=== PATIENT | female | born 1975 | race Caucasian/White ===

== ENCOUNTER 2016-05-27 18:02 | Emergency (ER) | payer BC ==
[2016-05-27 18:16] VITALS: RESP 16; TEMP 97.7
[2016-05-27] MEDS ORDERED: NORMAL SALINE 10 ML SYRINGE FLUSH IVP PRN (18:24)
[2016-05-27] MEDS ORDERED: Sodium Chloride 0.9% 1,000 ML PRIMARY IV ONE (18:24)
[2016-05-27 18:42] LABS: BASOPHILS # (AUTO) 0.04 10*3/UL; BASOPHILS % (AUTO) 0.3 % (0-1); EOSINOPHILS % (AUTO) 1.3 % (0-8); HEMATOCRIT 43.3 % (37.0-47.0); HEMOGLOBIN 14.9 g/dL (12.0-16.0); IMM GRAN % (AUTO) 0.3 % (0-5); IMM GRAN# (AUTO) 0.04 10*3/UL; LYMPHOCYTES # (AUTO) 4.15 10*3/uL; LYMPHOCYTES % (AUTO) 34.8 % (10-50); MEAN CORPUSCULAR HEMOGLOBIN 33.1 PG (27-31); MEAN CORPUSCULAR HGB CONC 34.4 g/dL (33-37); MEAN PLATELET VOLUME 10.2 FL (7.4-12.2); MONOCYTES # (AUTO) 0.84 10*3/UL (0.3-0.8); NEUTROPHILS # (AUTO) 6.71 10*3/UL; NEUTROPHILS % (AUTO) 56.3 % (50-80); RDW COEFFICIENT OF VARIATION 13.3 % (11.5-14.5); WHITE BLOOD COUNT 11.93 10^3/uL (4.8-10.8)
[2016-05-27 18:51] LABS: PLATELET MORPHOLOGY COMMENT NORMAL MORPHOLOGY (NORM)
[2016-05-27 18:55] LABS: ASPARTATE AMINO TRANSFERASE 34 IU/L (8-39); BILIRUBIN,TOTAL 0.8 mg/dL (0.3-1.2); BLOOD UREA NITROGEN 9 mg/dL (7-22); BUN/CREATININE RATIO 12.85 (6-20); CALCIUM 9.1 mg/dL (8.7-10.7); CHLORIDE 105 meq/L (98-112); CREATININE 0.7 mg/dL (0.50-1.20); EST GLOMERULAR FILTRATION > 60 (>60 ml/min/1.73m(2)); GLUCOSE 192 mg/dL (78-110); POTASSIUM 4.5 meq/L (3.8-5.2); SODIUM 140 meq/L (135-145); TOTAL PROTEIN 8.1 g/dL (6.1-8.0)
--- NOTE | 2016-05-28 07:57 | PDOC ---
General Adult HPI - General Chief Complaint: Diabetic Complaint Stated Complaint: HYPERGLYCEMIA Date Seen by Provider: 05/27/16 Time Seen by Provider: 18:05 Source: POSITIVE: Patient Exam Limitations: POSITIVE: No limitations Nurse's Notes Reviewed & Considered: Yes - History of Present Illness Initial Comment: The patient is a 41-year-old female with several vague complaints. Among these are sensation of discomfort in her hands and feet. She also states that she has some vague abdominal discomfort. She is concerned because her blood sugars at home have reportedly been running in the 300s, which is unusual for her. She has a history of type II diabetes mellitus. She's had a few loose bowel movements. No fevers or chills. No motor deficits. No cardiopulmonary symptoms. No GI or symptoms except as above. No rashes or skin changes. Have you received a tetanus shot in the past 10 years?: Yes Body Location Affected: REPORTS: Other (As above) Timing: REPORTS: Constant Duration: <1 week Severity: Moderate Quality: REPORTS: Other Context: REPORTS: None Modifying Factors: improves with: Nothing Similar Symptoms Previously: No Recent Care Received: REPORTS: Denies Any Prior Injuries Related to Current Complaint?: No - Patient Home Medications Home Medications: Home Medications Albuterol Sulfate [Proair Hfa] 2 puff INH Q4-6H #1 inh 05/15/16 Fluticasone/Vilanterol [Breo Ellipta 100-25 Mcg Inh] 1 puff INH DAILY #1 puff Alprazolam [Xanax] 1 tab PO TID PRN #20 tab 05/22/16 Saxagliptin HCl/Metformin HCl [Kombiglyze Xr 2.5-1,000 Mg Tab] Sample #192 Vilazodone Hydrochloride [Viibryd] Sample #2 05/22/16 - Patient Allergies Allergies/Adverse Reactions: Allergies Allergy/AdvReac Type Severity Reaction Status Date / Time ketorolac tromethamine Allergy Intermediate HIVES Verified 05/27/16 18:10 [From Toradol] Past Medical History - heen HEENT History: Cataracts Cardiovascular History: Hypertension, Previous [place], Other (please comment) Additional Cardiovasular History: PALPITATIONS WITH ANXIETY; STATES LA 5-6 YEARS AGO Respiratory History: Asthma, Shortness of Breath Additional Respiratory History: bronchitis Gastrointestinal History: GERD, Diverticulitis, Peptic Ulcer Disease, GI Bleed Additional Gastrointestinal History: ULCER 25 YRS AGO Genitourinary History: Denies History Endocrine History: Type 2 Diabetes (oral) Musculoskeletal History: Arthritis, Back Pain, Back Injury Prosthesis or Implant: Yes (PINS AND JORGE L IN LOWER BACK./ R KNEE) Additional Musculoskeletal History: prior spinal surgery with hardwear placed at L5-S1 Neurological History: Denies History Blood Disorders: Denies History Psychiatric History: Depression, Anxiety Disorders, PTSD History of Sexually Transmitted Diseases: No Female Reproductive History: Denies History Obstetrical History: Delivery Cancer History: Denies History In Past Year Been Physically Harmed or Verbally Threatened: No History of MDRO: No History of Other Communicable Diseases: No Tobacco Use: Current Every Day Smoker Alcohol Use: None Substance Use Type: None Previous Surgical History: Yes Type / Date of Surgery: BACK FUSION PINS AND RODS, DISECTOMY/ C SECTION X 4/ RIGHT UNILATERAL OOPHORECTOMY/ IGHT OOPHORECTOMY/EXPLORATORY LAPAROSCOPY/ CATARACT EXT X 2, RIGHT KNEE SCOPE AND PARTIAL REPLACEMENT/COLONOSCOPY/EGD/D&C / LEFT TUBE TIED Anesthesia Reactions: Yes (X1 DIFF AROUSING) Malignant Hyperthermia: No Significant Family History: Asthma, Heart disease, COPD, Diabetes Past Medical History Reviewed: Reviewed - No Changes ROS - Limitations ROS Limitations: No Limitations Constitution: REPORTS: Denies Symptoms Cardiovascular: REPORTS: Denies Cardiac Symptoms Respiratory: REPORTS: Denies Resp Symptoms Neurological: REPORTS: Denies Neuro Symptoms Gastrointestinal: REPORTS: Other (Discomfort) Endocrine: REPORTS: Denies Symptoms Musculoskeletal: REPORTS: Other (Hands and feet feel strange) Genitourinary: REPORTS: Denies Symptoms Eyes: REPORTS: Denies Symptoms ENT: REPORTS: Denies Symptoms Skin: REPORTS: Denies Skin Symptoms Lympathic: REPORTS: Denies Lympathic Symptoms Immunologic: POSITIVE: Denies Symptoms Psychiatric: POSITIVE: Denies Psych Symptoms General Adult Exam - General Appearance General Appearance: POSITIVE: Alert, Cooperative, No Acute Distress, No Evidence of Trauma - HEENT HEENT: POSITIVE: Head Inspection Nml, Eyes Inspection Nml, Ears Inspection Nml, Nose Inspection Nml, Oral/Dental Inspect. Nml, Pharynx Inspect. Nml, PERRL, EOMI - Pupils Pupil Size: 4 mm: Bilateral (PERRLA) - Neck Neck: POSITIVE: Normal Inspection, Thyroid Normal - Respiratory Respiratory: POSITIVE: No Respiratory Distress, Breath Sounds Normal, Chest Non- Tender - Cardiovascular Cardiovascular: POSITIVE: Regular Rate & Rhythm, No Murmur, No Gallop, PMI Normal Peripheral Pulses: Radial (R): 2+, Radial (L): 2+ - Abdomen Abdomen: Soft: (All Quadrants), Normal Bowel Sounds: (All Quadrants), Denies Tenderness: (All Quadrants), No Splenomegaly: (All Quadrants), No Hepatomegaly: (All Quadrants), No Guarding: (All Quadrants), No Rebound: (All Quadrants), No Palpable Pulse: (All Quadrants), No Palpabale Mass: (All Quadrants), No Distention: (All Quadrants), No Rigidity: (All Quadrants) - Back Back: POSITIVE: Normal Inspection - Skin Skin: POSITIVE: Normal Color, Warm, Dry, No Rash - Extremities Extremity: Non-Tender: (All Extremities), Normal ROM: (All Extremities), Normal Inspection: (All Extremities) - Neurological / Psychological Neurological: POSITIVE: Oriented X3, insurance legal assistant Normal As Tested, Motor Normal, Sensation Normal, 5, 6 General Adult Progress - Results Reviewed by me Lab Results Reviewed: Yes Lab Results:: Laboratory Results 05/27/16 Range/Units 18:33 WBC 11.93 H (4.8-10.8) 10^3/uL RBC 4.50 (4.20-5.40) 10^6/uL Hgb 14.9 (12.0-16.0) g/dL Hct 43.3 (37.0-47.0) % MCV 96.2 (81-99) FL MCH 33.1 H (27-31) PG MCHC 34.4 (33-37) g/dL RDW Std Deviation 46.0 (39-50) fL RDW Coeff of Brady 13.3 (11.5-14.5) % Plt Count 307 (140-350) 10*3/uL MPV 10.2 (7.4-12.2) FL Immature Gran % (Auto) 0.3 (0-5) % Neut % (Auto) 56.3 (50-80) % Lymph % (Auto) 34.8 (10-50) % [place] % (Auto) 7.0 (5-15) % Eos % (Auto) 1.3 (0-8) % Baso % (Auto) 0.3 (0-1) % Immature Gran # (Auto) 0.04 10*3/UL Neut # (Auto) 6.71 10*3/UL Lymph # (Auto) 4.15 10*3/uL [place] # (Auto) 0.84 H (0.3-0.8) 10*3/UL Eos # (Auto) 0.15 10*3/UL Baso # (Auto) 0.04 10*3/UL WBC Morphology Comment Normal morphology (NORM) Plt Morphology Comment Normal morphology (NORM) RBC Morph Comment Normal morphology (NORM) Sodium 140 (135-145) meq/L Potassium 4.5 (3.8-5.2) meq/L Chloride 105 (98-112) meq/L Carbon Dioxide 23 (23-33) meq/L Anion Gap 12 (5-20) BUN 9 (7-22) mg/dL Creatinine 0.7 (0.50-1.20) mg/dL Estimated GFR > 60 (>60 ml/min/1.73m(2)) BUN/Creatinine Ratio 12.85 (6-20) Glucose 192 H (78-110) mg/dL Calculated Osmolality 293.0 H (267-292) mOsm/kg Calcium 9.1 (8.7-10.7) mg/dL Magnesium 2.0 (1.6-2.4) mg/dL Total Bilirubin 0.8 (0.3-1.2) mg/dL AST 34 (8-39) IU/L ALT 34 (9-52) IU/L Alkaline Phosphatase 67 (38-126) IU/L Total Protein 8.1 H (6.1-8.0) g/dL Albumin 4.4 (3.5-4.8) g/dL Globulin 3.7 (2.50-4.10) g/dL Albumin/Globulin Ratio 1.10 L (1.3-2.0) mg/g - Patient's Progress Pain Medication Addressed: POSITIVE: Not Applicable School/Work Release Addressed: POSITIVE: Not Applicable Re-Examine Time: 19:50 Re-Examine Comment: Patient states he feels some improved after hydration with normal saline and Zofran IV Status: POSITIVE: Improved, Re-Examined Antibiotics Given: No - Consult Counseled: POSITIVE: Patient, RE: Lab Results, RE: DX, RE: Need for F/U Patient Care Time - Estimated PCT Patient Care Time (In Minutes): 40 Vital Signs - VS Reviewed Vital Signs Reviewed: Yes Discharge Clinical Impression: Hyperglycemia Discharge Disposition: Discharged to Home Condition: Good Patient Instructions Given at Discharge: Hypoglycemia in a Person with Diabetes (ED) Additional Instructions: Believe her symptoms are most likely due to fluctuations in your blood sugar. Increase fluids. Take your blood sugar twice daily for a few days and keep a record. Follow-up with your primary care provider in 7-10 days; he or she she might want to adjust her diabetic medications. Return any time if condition worsens. Follow Up With: MAMI MUKHERJEE [Primary Care Provider] - (Instructions as above. Follow-up with your primary care provider. Return as necessary.)
== END 2016-05-27 20:14 | disposition home or self-care (01) ==
LOC: ER 18:02
DX: E11.65 Type 2 diabetes mellitus with hyperglycemia (principal)
CPT/HCPCS: 80053; 82948; 83735; 85025; 96360; 99283; J7030

== ENCOUNTER → 2016-07-14 | Outpatient (CLI) | payer BC ==
--- NOTE | 2016-07-14 22:15 | DI ---
LEFT SHOULDER, 07/14/2016 5:37 PM: Clinical History: Anterior left shoulder pain. Previous Exam: None at this facility. 3 views are submitted. There is no acute soft tissue, osseous, or joint abnormality. No abnormality o f the visualized portions of the left lung is noted. Reading: Normal left shoulder exam.
== END ==
LOC: MOB RAD 17:38
DX: M25.512 Pain in left shoulder (principal); F17.200 Nicotine dependence, unspecified, uncomplicated; Z98.1 Arthrodesis status; X50.0XXA Overexertion from strenuous movement or load, initial encounter
CPT/HCPCS: 73030

== ENCOUNTER 2016-07-20 15:30 | Emergency (ER) | payer BC ==
[2016-07-20] MEDS ORDERED: oxyCODONE/APAP 10/325 Tab 1 EACH TAB PO ONE (16:20)
[2016-07-20 17:02] VITALS: RESP 16; TEMP 97.7
--- NOTE | 2016-07-20 17:11 | PDOC ---
Back Pain / Injury HPI - General Chief Complaint: Lower Extremity Problem/Injury Stated Complaint: LOWER EXTREMITY PAIN S/P SPINAL Date Seen by Provider: 07/20/16 Time Seen by Provider: 15:50 Source: Patient, RN/MD Exam Limitations: POSITIVE: No limitations Nurse's Notes Reviewed & Considered: Yes - History of Present Illness Initial Comments: The patient is a 41 year old female. She has a long-standing history of chronic back pain and lumbar radiculopathy. She states she has had 2 surgical procedures on her low back for this problem. It sounds like a her initial procedures was a discectomy and her second procedure was probably of spinal fusion. She continues to have back pain and she is presently under the care of Dr. Joseph, who ordered a myelogram done yesterday. Myelogram was attempted in radiology yesterday. The radiologist made to 2 or 3 attempts at 2 different locations and was not able to access the patient. Radiologist states that he did have a bloody return on the second or third pass and he discontinued his attempts at that time. Patient states that during this procedure she did have radicular pain radiating down her right leg and the radiologist terminated his attempt at that level at that time. Patient states she has a history of radicular pain, mainly involving the right leg. She states she is allergic to Toradol and hydrocodone but has used Percocet in the past with good effect. She states that since her myelogram attempt she has had increase in her chronic low back pain, mainly on the right lower paralumbar area with radiation of discomfort down the posterior aspect of her right leg to above her knee. Body Location Affected: REPORTS: Upper Extremity (R), Back Timing: REPORTS: Constant Duration: <24 hours (Approximately 24 hours) Severity: Moderate Quality: REPORTS: "Pain" Context: DENIES: None (Symptoms worse after failed myelogram attempt as above) Modifying Factors: improves with: Movement, Walking Associated Symptoms: REPORTS: Back pain, Other (Radicular pain right leg as above) Similar Symptoms Previously: Yes Recent Care Received: REPORTS: Denies, Recently Seen, Treated by MD (As above) Any Prior Injuries Related to Current Complaint?: No - Patient Home Medications Home Medications: Home Medications Albuterol Sulfate [Proair Hfa] 2 puff INH Q4-6H #1 inh 05/15/16 Fluticasone/Vilanterol [Breo Ellipta 100-25 Mcg Inh] 1 puff INH DAILY #1 puff Hydrocodone/Acetaminophen [Hydrocodon-Acetaminophen 5-325] 1 tab PO Q6-8H PRN # 20 tab 07/14/16 Oxycodone HCl/Acetaminophen [Percocet 10-325 Mg Tablet] 1 each PO Q6H PRN #25 tablet 07/20/16 - Patient Allergies Allergies/Adverse Reactions: Allergies Allergy/AdvReac Type Severity Reaction Status Date / Time ketorolac tromethamine Allergy Intermediate HIVES Verified 07/20/16 16:23 [From Toradol] Past Medical History - heen HEENT History: Cataracts Cardiovascular History: Hypertension, Previous [place], Other (please comment) Additional Cardiovasular History: PALPITATIONS WITH ANXIETY; STATES IN 5-6 YEARS AGO Respiratory History: Asthma, Shortness of Breath Additional Respiratory History: bronchitis Gastrointestinal History: GERD, Diverticulitis, Peptic Ulcer Disease, GI Bleed Additional Gastrointestinal History: ULCER 25 YRS AGO Genitourinary History: Denies History Endocrine History: Type 2 Diabetes (oral) Musculoskeletal History: Arthritis, Back Pain, Back Injury Prosthesis or Implant: Yes (PINS AND JORGE L IN LOWER BACK./ R KNEE) Additional Musculoskeletal History: prior spinal surgery with hardwear placed at L5-S1 Neurological History: Denies History Blood Disorders: Denies History Psychiatric History: Depression, Anxiety Disorders, PTSD History of Sexually Transmitted Diseases: No Female Reproductive History: Fibroids Obstetrical History: Delivery Additional Obstetrical History: X4 Cancer History: Denies History In Past Year Been Physically Harmed or Verbally Threatened: No History of MDRO: No History of Other Communicable Diseases: No Tobacco Use: Current Every Day Smoker Alcohol Use: None Substance Use Type: None Previous Surgical History: Yes Type / Date of Surgery: BACK FUSION PINS AND RODS, DISECTOMY/ C SECTION X 4/ RIGHT UNILATERAL OOPHORECTOMY/ IGHT OOPHORECTOMY/EXPLORATORY LAPAROSCOPY/ CATARACT EXT X 2, RIGHT KNEE SCOPE AND PARTIAL REPLACEMENT/COLONOSCOPY/EGD/D&C / LEFT TUBE TIED Anesthesia Reactions: Yes (X1 DIFF AROUSING) Malignant Hyperthermia: No Significant Family History: Asthma, Heart disease, COPD, Diabetes Past Medical History Reviewed: Reviewed - No Changes ROS - Limitations ROS Limitations: No Limitations Constitution: REPORTS: Denies Symptoms Cardiovascular: REPORTS: Denies Cardiac Symptoms Respiratory: REPORTS: Denies Resp Symptoms Neurological: REPORTS: Other (Radicular pain, left leg) Gastrointestinal: REPORTS: Denies GI Symptoms Endocrine: REPORTS: Denies Symptoms Musculoskeletal: REPORTS: Back Pain (Right lower back pain as above) Genitourinary: REPORTS: Denies Symptoms Eyes: REPORTS: Denies Symptoms ENT: REPORTS: Denies Symptoms Skin: REPORTS: Denies Skin Symptoms Lympathic: REPORTS: Denies Lympathic Symptoms Immunologic: POSITIVE: Denies Symptoms Psychiatric: POSITIVE: Denies Psych Symptoms Back Physical Assessment - General Appearance General Appearance: REPORTS: Alert, Cooperative, No Evidence of Trauma, Moderate Distress (Due to back and right upper leg pain) - HEENT HEENT: POSITIVE: Head Inspection Nml, Eyes Inspection Nml, Ears Inspection Nml, Nose Inspection Nml, Oral/Dental Inspect. Nml, Pharynx Inspect. Nml, PERRL, EOMI - Neck Neck: POSITIVE: Non Tender, Painless ROM, Trachea Midline, Nexus Criteria Negative - Respiratory / CVS Respiratory / CVS: POSITIVE: Chest Non Tender, No Ecchymosis, Breath Sounds Normal, No Respiratory Distress, Heart Sounds Normal, Regular Rate/Rhythm - Abdomen Abdomen: Soft: (All Quadrants), Normal Bowel Sounds: (All Quadrants), Denies Tenderness: (All Quadrants), No Splenomegaly: (All Quadrants), No Hepatomegaly: (All Quadrants), No Guarding: (All Quadrants), No Rebound: (All Quadrants), No Palpable Pulse: (All Quadrants), No Palpabale Mass: (All Quadrants), No Distention: (All Quadrants), No Rigidity: (All Quadrants) - Back Back: REPORTS: No CVA Tenderness, No Vertebral Tenderness, Limited ROM ( Somewhat limited by pain), See Diagram (Pain on palpation right lower paralumbar area). DENIES: CVA Tenderness (R), CVA Tenderness (L), Muscle Spasm - Skin Skin: REPORTS: Intact, Normal For Race, Warm, Dry, No Rash, Other (Site of recent myelogram attempt clear and with no signs of infection) - Extremities Extremity Assessment: Non-Tender: (ALL), Normal ROM: (ALL), No Edema: (ALL), Normal Inspection: (ALL), No Swelling: (ALL), Pelvis Stable: (ALL), Normal Tendon Exam: (ALL) Musculoskeletal: REPORTS: Back Pain Peripheral Pulses: Radial (R): 2+, Radial (L): 2+, Dorsalis-pedis (R): 2+, Dorsalis-pedis (L): 2+ - Neurological / Psychological Neuro / Psych: POSITIVE: Oriented X3, stain wiper Normal As Tested, Motor Normal, Sensation Normal, Mood Appropriate, Affect Appropriate, Reflexes Normal, Other ( Range of motion hips are intact. Patient does complain of some exacerbation of radicular pain down right leg with straight leg raising. Equivocally positive LeSeaque's test. Motor function both lower extremities normal. Sensation to touch grossly intact, both lower extremities) Reflexes: Patellar (L): 2+, Radial (R): 2+ Images - Complete Complete: 1 - Some pain on palpation Back Progress - Patient's Progress Pain Medication Addressed: POSITIVE: Yes (Percocet 10/325 one every 6 hours as necessary) School/Work Release Addressed: POSITIVE: Yes (Rest for 48 hours) Re-Examine Time: 16:20 Status: POSITIVE: Unchanged - Consult Counseled: POSITIVE: Patient, RE: DX, RE: Need for F/U Patient Care Time - Estimated PCT Patient Care Time (In Minutes): 30 Vital Signs - Recent Vital Signs Vital Signs: Vital Signs (Last 8 hours) Temp Pulse Resp BP Pulse Ox 07/20/16 15:30 97.7 F 106 H 16 143/102 95 - VS Reviewed Vital Signs Reviewed: Yes Discharge Clinical Impression: Radiculopathy of leg, Chronic low back pain Discharge Disposition: Discharged to Home Condition: Fair Prescriptions / Orders: Oxycodone HCl/Acetaminophen [Percocet 10-325 Mg Tablet] 1 each PO Q6H PRN #25 tablet PRN Reason: Pain Patient Instructions Given at Discharge: Lumbar Radiculopathy (ED), Chronic Back Pain (ED) Additional Instructions: Follow-up with Dr. Joseph in a day or 2. Percocet, one every 6 hours as necessary for pain. Warm moist compresses to lower back. Rest for a day or 2. Follow-up with your primary care provider. Return here as necessary. Follow Up With: MAMI MUKHERJEE [Primary Care Provider] - (Instructions as above. Return as necessary.)
== END 2016-07-20 16:41 | disposition home or self-care (01) ==
LOC: ER 15:38
DX: M54.16 Radiculopathy, lumbar region (principal); E11.9 Type 2 diabetes mellitus without complications
CPT/HCPCS: 99282

== ENCOUNTER → 2016-07-25 | Outpatient (CLI) | payer BC ==
[2016-07-25 12:42] LABS: BASOPHILS % (AUTO) 0.9 % (0-1); EOSINOPHILS # (AUTO) 0.17 10*3/UL; EOSINOPHILS % (AUTO) 1.5 % (0-8); HEMOGLOBIN 15.8 g/dL (12.0-16.0); LYMPHOCYTES # (AUTO) 2.74 10*3/uL; MEAN CORPUSCULAR HGB CONC 34.3 g/dL (33-37); MEAN PLATELET VOLUME 10.1 FL (7.4-12.2); MONOCYTES # (AUTO) 0.86 10*3/UL (0.3-0.8); MONOCYTES % (AUTO) 7.6 % (5-15); NEUTROPHILS # (AUTO) 7.46 10*3/UL; NEUTROPHILS % (AUTO) 65.6 % (50-80); RED BLOOD COUNT 4.79 10^6/uL (4.20-5.40)
[2016-07-25 12:46] LABS: PLATELET MORPHOLOGY COMMENT NORMAL MORPHOLOGY (NORM); RBC MORPHOLOGY COMMENT NORMAL MORPHOLOGY (NORM); WBC MORPHOLOGY COMMENT NORMAL MORPHOLOGY (NORM)
[2016-07-25 12:55] LABS: BLOOD UREA NITROGEN 9 mg/dL (7-22); BUN/CREATININE RATIO 12.85 (6-20); CALCIUM 9.4 mg/dL (8.7-10.7); EST GLOMERULAR FILTRATION > 60 (>60 ml/min/1.73m(2)); SERUM ALBUMIN 4.1 g/dL (3.5-4.8)
== END ==
LOC: MOB LAB 12:15
PROVIDERS: ATTEND Physician Assistant Medical
DX: R42 Dizziness and giddiness (principal); I10 Essential (primary) hypertension; F17.200 Nicotine dependence, unspecified, uncomplicated
CPT/HCPCS: 36415; 80053; 85025

== ENCOUNTER → 2016-07-26 | Outpatient (CLI) | payer BC ==
[~2016-07-26] MED LIST: DIAZEPAM 5 MG TABLET ONE
--- NOTE | 2016-07-26 17:20 | DI ---
MRI LUMBAR SPINE W/O CN,07/26/2016 4:03 PM: Clinical History: Lower extremity pain with possible postprocedural hematoma. Previous Exam: None at this facility. Findings: Multiplanar MR images are obtained through the lumbar spine without contrast, and demonstrate no evid ence of epidural hematoma. There is a small amount of fat within the filum terminale with a normal-appearing conus at the L1 lev el. Patient is status post bilateral laminectomies at the L5 level with transpedicular fixation of L5/S1. The paravertebral soft tissues demonstrate postsurgical change. Intra-abdominal structures are unrema rkable. Vertebral body height is preserved. Marrow signal is also preserved. Individual intervertebral disc spaces: L1/2: No significant stenosis. L2/3: No significant stenosis. L3/4: No significant stenosis. L4/5: There is mild disc desiccation and annular fissuring with facet and ligamentum flavum hypertrop hy contributing to mild bilateral neural foraminal narrowing. L5/S1: There is some disc desiccation and postsurgical changes at this level. Blooming metallic artif act makes evaluation somewhat limited, but there appears to be some moderate lateral recess stenosis on the right. There is also mild left lateral recess stenosis. Impression: 1. No evidence of epidural hematoma. 2. Degenerative changes and postsurgical changes as above.
--- NOTE | 2016-07-26 17:23 | DI ---
CT LUMBAR SPINE W/O CONTRAST,07/26/2016 4:03 PM: Clinical History: Hematoma after procedure. Previous Exam: None at this facility. Findings: Multiple helically acquired CT images are obtained through the lumbar spine without contrast, and dem onstrate anatomic alignment without fractures. Postsurgical changes are seen consistent with laminect omies at the L5 level. There is transpedicular fusion of L5/S1. There is also interbody fusion at L5/ S1 with some new bone formation, but incomplete fusion at this time. There is some moderate right lateral recess stenosis at L5/S1 with mild lateral recess stenosis on th e left at L5/S1. There are few broad-based disc bulges throughout the lumbar spine without significant stenosis. No acute fractures are identified. Impression: Postsurgical changes and degenerative changes at L5/S1 as above.
== END ==
LOC: MRI 15:56
PROVIDERS: ATTEND Physician Assistant
DX: G97.61 Postprocedural hematoma of a nervous system organ or structure following a nervous system procedure (principal); M48.07 Spinal stenosis, lumbosacral region
CPT/HCPCS: 72131; 72148

== ENCOUNTER → 2016-08-01 | Outpatient (CLI) | payer BC ==
--- NOTE | 2016-08-01 12:40 | DI ---
XR L-SPINE 2-3 VW,08/01/2016 9:42 AM: Clinical History: Low back pain Previous Exam: None at this facility. Findings: Lateral flexion and extension views are obtained of the lumbar spine, and demonstrate stable postsurg ical changes consistent with transpedicular fixation of L5/S1. There is an intervertebral disc space at L5/S1 as well. Vertebral body height is preserved. Intervertebral disc height is preserved. Flexion and extension vi ews demonstrate no evidence of instability. Impression: Postsurgical changes as above without evidence of instability.
== END ==
LOC: LAB 09:33
PROVIDERS: ATTEND Neurological Surgery
DX: M54.5 Low back pain (principal); Z98.890 Other specified postprocedural states
CPT/HCPCS: 72100

== ENCOUNTER → 2016-08-30 | Outpatient (CLI) | payer OTHER ==
[2016-08-30 11:23] LABS: BASOPHILS # (AUTO) 0.05 10*3/UL; BASOPHILS % (AUTO) 0.4 % (0-1); EOSINOPHILS # (AUTO) 0.18 10*3/UL; EOSINOPHILS % (AUTO) 1.5 % (0-8); HEMATOCRIT 46.4 % (37.0-47.0); HEMOGLOBIN 15.8 g/dL (12.0-16.0); LYMPHOCYTES # (AUTO) 4.38 10*3/uL; MEAN CORPUSCULAR HEMOGLOBIN 32.6 PG (27-31); MEAN CORPUSCULAR HGB CONC 34.1 g/dL (33-37); MEAN CORPUSCULAR VOLUME 95.7 FL (81-99); MONOCYTES # (AUTO) 0.71 10*3/UL (0.3-0.8); MONOCYTES % (AUTO) 5.8 % (5-15); NEUTROPHILS % (AUTO) 56.3 % (50-80); PLATELET MORPHOLOGY COMMENT NORMAL MORPHOLOGY (NORM); RBC MORPHOLOGY COMMENT NORMAL MORPHOLOGY (NORM); RED BLOOD COUNT 4.85 10^6/uL (4.20-5.40); WBC MORPHOLOGY COMMENT NORMAL MORPHOLOGY (NORM)
[2016-08-30 11:36] LABS: BLOOD UREA NITROGEN 12 mg/dL (7-22); BUN/CREATININE RATIO 17.14 (6-20); CALCIUM 9.1 mg/dL (8.7-10.7); EST GLOMERULAR FILTRATION > 60 (>60 ml/min/1.73m(2)); SERUM ALBUMIN 4.4 g/dL (3.5-4.8)
[2016-08-30 11:39] LABS: BILIRUBIN,URINE NEGATIVE (NEG); CLARITY,URINE CLEAR (CLEAR); COLOR,URINE YELLOW; GLUCOSE, URINE (UA) 500 mg/dL (NEG); NITRATE,URINE NEGATIVE (NEG); OCCULT BLOOD,URINE NEGATIVE (NEG); PROTEIN,URINE NEGATIVE (NEG); UROBILINOGEN,URINE 0.2 EU/dL (0.2)
[2016-08-30 11:44] LABS: URINE SAMPLE TYPE CLEAN CATCH URINE
--- NOTE | 2016-08-30 14:11 | DI ---
PA /LATERAL CHEST X-RAY, 08/30/2016 11:02 AM : Clinical History: Preoperative evaluation. Previous Exam: March 23, 2016 There is no acute soft tissue or bony abnormality. Heart size is normal. Lungs are clear. Mediastinal structures are normal. There are no pulmonary nodules. IMPRESSION: Normal chest x-ray.
[2016-08-30 16:06] LABS: HEMOGLOBIN A1C 8.32 % (4.2-6.0)
--- NOTE | 2016-08-31 05:55 | EKG ---
[address] [address] Measurements Intervals [place] Rate: 87 P: 64 DE: 144 QRS: 72 QRSD: 91 T: 26 QT: 354 QTc: 398 Interpretive Statements SINUS RHYTHM INTERPRETATION BASED ON A DEFAULT AGE OF 40 YEARS Compared to ECG 03/23/2016 21:07:37 No significant changes Electronically Signed On 08-31-16 15:46:12 MDT by Gatito Blanco MD [email or web address]
== END ==
LOC: RAD 10:50
PROVIDERS: ATTEND Family Medicine
DX: Z01.812 Encounter for preprocedural laboratory examination (principal); Z01.810 Encounter for preprocedural cardiovascular examination; M54.5 Low back pain; E11.9 Type 2 diabetes mellitus without complications; J44.9 Chronic obstructive pulmonary disease, unspecified; I10 Essential (primary) hypertension; F17.200 Nicotine dependence, unspecified, uncomplicated
CPT/HCPCS: 36415; 71020; 80053; 81003; 83036; 85025; 85610; 85730; 93005; 93010

== ENCOUNTER 2016-10-08 22:20 | Emergency (ER) | payer BC ==
--- NOTE | 2016-10-08 23:34 | PDOC ---
Skin Rash/Insect/Abscess HPI - General Chief Complaint: Integumentary Stated Complaint: ABDOMINAL INCISION WITH REDNESS AND DRAINAGE Date Seen by Provider: 10/08/16 Time Seen by Provider: 23:33 Source: POSITIVE: Patient Exam Limitations: POSITIVE: No limitations Nurse's Notes Reviewed & Considered: Yes - History of Present Illness Have you received a tetanus shot in the past 10 years?: Yes Body Location Affected: REPORTS: Abdomen Timing: REPORTS: Unknown Duration: Unknown Severity: Mild Quality: REPORTS: Other (No pain) Identified Causes: REPORTS: Possibly When Exposed: REPORTS: Unknown Exposure Time Where Exposed: REPORTS: Unknown Similar Symptoms Previously: No Recent Care Received: REPORTS: Treated by MD, Hospitalized Any Prior Injuries Related to Current Complaint?: No - Patient Home Medications Home Medications: Home Medications Albuterol Sulfate [Proair Hfa] 2 puff INH Q4-6H #1 inh 05/15/16 Fluticasone/Vilanterol [Breo Ellipta 100-25 Mcg Inh] 1 puff INH DAILY #1 puff Oxycodone HCl/Acetaminophen [Percocet 10-325 Mg Tablet] 1 each PO Q4-6H #30 tab 08/24/16 Bupropion HCl [Bupropion Hcl Sr] 1 tab PO BID #60 tab 08/31/16 Saxagliptin HCl/Metformin HCl [Kombiglyze Xr 5-1,000 Mg Tab] Sample #133 09/01 Metaxalone 800 mg PO 3-4XD #120 tab 10/04/16 - Patient Allergies Allergies/Adverse Reactions: Allergies Allergy/AdvReac Type Severity Reaction Status Date / Time ketorolac tromethamine Allergy Intermediate HIVES Verified 07/20/16 16:23 [From Toradol] Past Medical History - heen HEENT History: Cataracts Cardiovascular History: Hypertension, Previous AL, Other (please comment) Additional Cardiovasular History: PALPITATIONS WITH ANXIETY; STATES AL 5-6 YEARS AGO Respiratory History: Asthma, Shortness of Breath Additional Respiratory History: bronchitis Gastrointestinal History: GERD, Diverticulitis, Peptic Ulcer Disease, GI Bleed Additional Gastrointestinal History: ULCER 25 YRS AGO Genitourinary History: Denies History Endocrine History: Type 2 Diabetes (oral) Musculoskeletal History: Arthritis, Back Pain, Back Injury Prosthesis or Implant: Yes (PINS AND JORGE L IN LOWER BACK./ R KNEE) Additional Musculoskeletal History: prior spinal surgery with hardwear placed at L5-S1 Neurological History: Denies History Blood Disorders: Denies History Psychiatric History: Depression, Anxiety Disorders, PTSD History of Sexually Transmitted Diseases: No Cancer History: Denies History History of MDRO: No History of Other Communicable Diseases: No Alcohol Use: None Substance Use Type: None Previous Surgical History: Yes Type / Date of Surgery: BACK FUSION PINS AND RODS, DISECTOMY/ C SECTION X 4/ RIGHT UNILATERAL OOPHORECTOMY/ IGHT OOPHORECTOMY/EXPLORATORY LAPAROSCOPY/ CATARACT EXT X 2, RIGHT KNEE SCOPE AND PARTIAL REPLACEMENT/COLONOSCOPY/EGD/D&C / LEFT TUBE TIED Anesthesia Reactions: Yes (X1 DIFF AROUSING) Malignant Hyperthermia: No Significant Family History: Asthma, Heart disease, COPD, Diabetes Procedures - Laceration/Wound Repair Did patient have a laceration repair: No Skin Rash/Abscess Progress - Results Reviewed by me Labs Normal Except for:: Abnormal Lab Results: Entire Visit 10/08/16 Range/Units 23:35 RBC 3.81 L (4.20-5.40) 10^6/uL Hct 36.7 L (37.0-47.0) % MCH 31.5 H (27-31) PG MCHC 32.7 L (33-37) g/dL Plt Count 540 H (140-350) 10*3/uL Lab Results Reviewed: Yes - Patient's Progress Pain Medication Addressed: POSITIVE: Not Applicable Re-Examine Time:: 00:13 Status: POSITIVE: Improved MDM / ED Course: Patient was examined, no purulent discharge was able to be expressed from a small area in the inferior portion of the wound on her ventral abdomen. I was unable to appreciate any fluctuance. Findings: CBC shows a normal white count. Assessment: Abdominal incision irritation. Plan: Discharge home antibiotic ointment as needed. Follow-up with primary care physician. - Consult Counseled: POSITIVE: Patient, Family, RE: Lab Results, RE: DX, RE: Need for F/U Patient Care Time - Estimated PCT Patient Care Time (In Minutes): 10 Vital Signs - Recent Vital Signs Vital Signs: Vital Signs (Last 8 hours) Temp Pulse Resp BP Pulse Ox 10/08/16 22:20 98.2 F 98 20 110/76 93 Discharge Clinical Impression: Incisional irritation Discharge Disposition: Discharged to Home Condition: Stable Patient Instructions Given at Discharge: Abscess Incision and Drainage (ED)
[2016-10-08] MEDS ORDERED: BACITRACIN 0.9 GM PACKET OINT TOPICAL ONE (23:36)
[2016-10-09 00:06] LABS: BASOPHILS # (AUTO) 0.07 10*3/UL; BASOPHILS % (AUTO) 0.7 % (0-1); EOSINOPHILS # (AUTO) 0.45 10*3/UL; EOSINOPHILS % (AUTO) 4.7 % (0-8); HEMATOCRIT 36.7 % (37.0-47.0); MEAN CORPUSCULAR HEMOGLOBIN 31.5 PG (27-31); MEAN CORPUSCULAR HGB CONC 32.7 g/dL (33-37); MEAN CORPUSCULAR VOLUME 96.3 FL (81-99); MEAN PLATELET VOLUME 9.2 FL (7.4-12.2); MONOCYTES # (AUTO) 0.79 10*3/UL (0.3-0.8); MONOCYTES % (AUTO) 8.2 % (5-15); NEUTROPHILS # (AUTO) 5.17 10*3/UL; NEUTROPHILS % (AUTO) 53.8 % (50-80); RED BLOOD COUNT 3.81 10^6/uL (4.20-5.40)
[2016-10-09 00:09] LABS: PLATELET MORPHOLOGY COMMENT NORMAL MORPHOLOGY (NORM); RBC MORPHOLOGY COMMENT NORMAL MORPHOLOGY (NORM); WBC MORPHOLOGY COMMENT NORMAL MORPHOLOGY (NORM)
[2016-10-09] MEDS ORDERED: BACITRACIN 0.9 GM PACKET OINT TOPICAL SCH (00:30)
[2016-10-09 05:05] VITALS: RESP 20; TEMP 98.2
== END 2016-10-09 00:30 | disposition home or self-care (01) ==
LOC: ER 22:20
DX: L76.82 Other postprocedural complications of skin and subcutaneous tissue (principal); Z98.1 Arthrodesis status
CPT/HCPCS: 36415; 85025; 99282

== ENCOUNTER → 2016-11-10 | Outpatient (CLI) | payer OTHER ==
--- NOTE | 2016-11-10 10:47 | DI ---
History: Low back pain Comparison: August 11, 2001 Findings: Anterior and Posterior fixation L5-S1. Hardware is well seated. Alignment is good. Lumbar lordosis is normal. No scoliosis SI joints unremarkable No compression fracture No spondylolisthesis Intervertebral disc spaces are well maintained from L1-L5. Impression: Postoperative changes L5-S1. No changes compared lateral views of aug 11 2016
== END ==
LOC: RAD 10:15
PROVIDERS: ATTEND Neurological Surgery
DX: Z48.811 Encounter for surgical aftercare following surgery on the nervous system (principal); M54.5 Low back pain
CPT/HCPCS: 72100